=== PATIENT | female | born 1975 | race Hispanic/Latino ===

== ENCOUNTER 2017-11-24 14:13 | Emergency (ER) | payer OTHER ==
[2017-11-24 15:32] LABS: Absolute Lymphocytes (CBC) 2.1 K/uL (0.7-4.9); Absolute Monocytes 0.5 K/uL (0.1-1.3); Absolute Neutrophil 3.7 K/uL (1.8-8.0); Basophils % 0.4 % (0-1.3); Eosinophils % 0.3 % (0-4.4); Lymphocytes % 32.8 % (15.3-44.8); MCH 32.1 pg (27.0-35.0); MPV 8.2 fL (7.6-11.3); Monocytes % 7.9 % (3.3-12.3); RBC Red Blood Cell Count 4.52 M/uL (3.86-4.86)
[2017-11-24 15:43] LABS: Protime INR 0.91
[2017-11-24 15:58] LABS: Bicarbonate 25 mEq/L (21-31); Glucose Level 100 mg/dL (65-120); Potassium 3.7 mEq/L (3.6-5.0); Sodium Level 137 mEq/L (135-145)
--- NOTE | 2017-11-24 16:00 | RAD REPORT ---
EXAM DESCRIPTION: RAD - Chest Single View - 11/24/2017 3:51 pm CLINICAL HISTORY: Difficulty breathing COMPARISON: None. FINDINGS: Portable technique limits examination quality. The lungs are grossly clear. The heart is normal in size. No displaced fractures. IMPRESSION: No acute intrathoracic process suspected.
[2017-11-24 16:05] LABS: ALT/SGPT 18 IU/L (10-60); AST/SGOT 25 IU/L (10-42); Albumin 4.1 g/dL (3.2-5.5); Alkaline Phosphatase 103 IU/L (42-121); BUN Blood Urea Nitrogen 10 mg/dL (6-20); Bilirubin Direct 0.1 mg/dL (0-0.2); Bilirubin Total 0.5 mg/dL (0.3-1.2); Creatine Phosphokinase 95 IU/L (22-269); Magnesium 2.1 mg/dL (1.8-2.5); Protein, Total 7.3 g/dL (6.0-8.3)
[2017-11-24 16:15] LABS: CKMB Creatine Kinase MB 1.4 ng/ml (0.3-4.0)
--- NOTE | 2017-11-24 16:51 | ER ---
Nurse's Notes [facility] Name: Kary Dorado Age: 42 yrs Sex: Female : 1975 Arrival Date: 11/24/2017 Time: 14:15 Bed 16 Private MD: Diagnosis: Chest pain, unspecified Presentation: 11/24 14:25 Presenting complaint: Patient states: coworker states "we were working and she was tw2 having a hard time breathing and it hurt in my back, with a lot of pressure in her chest and she has been coughing a lot for 6 weeks". Transition of care: patient was not received from another setting of care. Onset of symptoms was November 24, 2017. Initial Sepsis Screen: Does the patient meet any 2 criteria? No. Patient's initial sepsis screen is negative. Does the patient have a suspected source of infection? No. Patient's initial sepsis screen is negative. Care prior to arrival: None. 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 - Social history:: Smoking status: Patient/guardian denies using tobacco. Screenin:15 Abuse screen: Denies threats or abuse. Denies injuries from another. Nutritional jl7 screening: No deficits noted. Tuberculosis screening: No symptoms or risk factors identified. Fall Risk IV access (20 points). Total Alvarado Fall Scale indicates No Risk (0-24 pts). Assessment: 15:15 General: Appears uncomfortable, Behavior is cooperative, appropriate for age, anxious. jl7 Pain: Complains of pain in anterior aspect of left upper chest Pain radiates to left arm and striaght through to the back Pain currently is 10 out of 10 on a pain scale. at worst was 10 out of 10 on a pain scale. Quality of pain is described as sharp, stabbing, Pain began 1 day ago. Is intermittent. Neuro: Level of Consciousness is awake, alert, obeys commands, Oriented to person, place, time, situation. Cardiovascular: Heart tones S1 S2 present Patient's skin is warm and dry. Respiratory: Reports shortness of breath cough that is since "Months" Airway is patent Respiratory effort is even, unlabored, Respiratory pattern is regular, symmetrical, Breath sounds are clear bilaterally. GI: No signs and/or symptoms were reported involving the gastrointestinal system. : No signs and/or symptoms were reported regarding the genitourinary system. EENT: No signs and/or symptoms were reported regarding the EENT system. Derm: Skin is pink, warm \\T\\ dry. Musculoskeletal: No signs and/or symptoms reported regarding the musculoskeletal system. 16:20 Reassessment: Patient and/or family updated on plan of care and expected duration. Pain jl7 level reassessed. Patient is alert, oriented x 3, equal unlabored respirations, skin warm/dry/pink. Vital Signs: 14:26 BP 121 / 86; Pulse 80; Resp 17; Temp 98.6(O); Pulse Ox 97% on R/A; Weight 63.5 kg (R); tw2 Height 5 ft. 3 in. (160.02 cm); Pain 6/10; 14:42 BP 123 / 81; Pulse 72; Resp 16 S; Pulse Ox 100% on R/A; jl7 15:30 BP 118 / 84; Pulse 68; Resp 16; Pulse Ox 100% on R/A; jl7 16:19 BP 120 / 84; Pulse 75; Resp 16 S; Pulse Ox 98% on R/A; jl7 17:00 BP 114 / 82; Pulse 74; Resp 16 S; Pulse Ox 98% on R/A; dm5 14:26 Body Mass Index 24.80 (63.50 kg, 160.02 cm) tw2 ED Course: 14:15 Patient arrived in ED. tw3 14:26 Triage completed. tw2 14:26 Arm band placed on. tw2 14:43 Ede Whyte NP is PHCP. pm1 14:43 Femi Dorado MD is Attending Physician. pm1 14:56 Yael Joyce RN is Primary Nurse. jl7 15:15 Initial lab(s) drawn, by pa, sent to lab. Inserted saline lock: 20 gauge in left jl7 antecubital area, using aseptic technique. Blood collected. 15:17 Patient has correct armband on for positive identification. Placed in gown. Bed in low mh5 position. Side rails up X2. Adult w/ patient. shelter monitor on. Pulse ox on. NIBP on. 15:17 EKG done, by ED staff, reviewed by Ede Whyte NP. mh5 15:32 EKG done, by auto technician mechanic. reviewed by Ede Whyte NP. at1 15:50 X-ray completed. Portable x-ray completed in exam room. Patient tolerated procedure bb2 well. 15:51 XRAY Chest (1 view) In Process Unspecified. EDMS 17:04 IV discontinued, intact, bleeding controlled, No redness/swelling at site. Pressure dm5 dressing applied. 17:10 No provider procedures requiring assistance completed. dm5 18:18 Primary Nurse role handed off by Yael Joyce RN ag Administered Medications: No medications were administered Outcome: 16:51 Discharge ordered by MD. pm1 17:10 Discharged to home ambulatory. dm5 17:10 Condition: stable 17:10 Discharge instructions given to patient, family, Instructed on discharge instructions, follow up and referral plans. medication usage, Demonstrated understanding of instructions, follow-up care, medications, Prescriptions given X 2. 17:11 Patient left the ED. dm5 18:21 Patient left the ED. ag Signatures: Dispatcher [employer] EDNV Farhana Kuhn, RN RN robert5 Franchesca daley, interchange agent EKG Tat1 Neil, Ede Boo NP [employer] pm1 Jacquelin Jett RN RN tw2 Betsy Soni Yael Riley RN RN jl7 Senia Dunn tw3 Vijaya Duarte bb2
--- NOTE | 2017-11-24 16:52 | EDPHYS ---
Physician Documentation [facility] Name: Kary Dorado Age: 42 yrs Sex: Female : 1975 Arrival Date: 11/24/2017 Time: 14:15 Bed 16 Private MD: ED Physician Femi Dorado HPI: 11/24 17:00 This 42 yrs old Female presents to ER via Ambulatory with complaints of Side pm1 Pain, Chest Pain > 30 y/o. 17:00 The patient or guardian reports chest pain that is located primarily in the mid-sternal pm1 area. Onset: 2 day(s) ago. The pain radiates to the left shoulder. Associated signs and symptoms: Pertinent positives: cough, Pertinent negatives: abdominal pain, dizziness, headache, nausea, shortness of breath, vomiting. The chest pain is described as sharp. Duration: The patient or guardian reports multiple episodes, that have now resolved, the episodes last approximately 5 second(s). Modifying factors: The symptoms are alleviated by nothing. the symptoms are aggravated by cough, deep breath, emotionally stressful situations, palpation of area. Severity of pain: in the emergency department the pain has resolved. The patient has not experienced similar symptoms in the past. 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 - Social history:: Smoking status: Patient/guardian denies using tobacco. ROS: 17:00 Constitutional: Negative for fever, chills, and weight loss, Eyes: Negative for injury, pm1 pain, redness, and discharge, ENT: Negative for injury, pain, and discharge, Neck: Negative for injury, pain, and swelling. 17:00 Respiratory: Negative for shortness of breath, cough, wheezing, and pleuritic chest pain, Abdomen/GI: Negative for abdominal pain, nausea, vomiting, diarrhea, and constipation, Back: Negative for injury and pain, : Negative for injury, bleeding, discharge, and swelling, MS/Extremity: Negative for injury and deformity, Skin: Negative for injury, rash, and discoloration, Neuro: Negative for headache, weakness, numbness, tingling, and seizure. 17:00 Cardiovascular: Positive for chest pain, Negative for edema. Exam: 17:00 Constitutional: This is a well developed, well nourished patient who is awake, alert, pm1 and in no acute distress. Head/Face: Normocephalic, atraumatic. Eyes: Pupils equal round and reactive to light, extra-ocular motions intact. Lids and lashes normal. Conjunctiva and sclera are non-icteric and not injected. Cornea within normal limits. Periorbital areas with no swelling, redness, or edema. ENT: Nares patent. No nasal discharge, no septal abnormalities noted. Tympanic membranes are normal and external auditory canals are clear. Oropharynx with no redness, swelling, or masses, exudates, or evidence of obstruction, uvula midline. Mucous membranes moist. Neck: Trachea midline, no thyromegaly or masses palpated, and no cervical lymphadenopathy. Supple, full range of motion without nuchal rigidity, or vertebral point tenderness. No Meningismus. 17:00 Cardiovascular: Regular rate and rhythm with a normal S1 and S2. No gallops, murmurs, or rubs. Normal PMI, no JVD. No pulse deficits. Respiratory: Lungs have equal breath sounds bilaterally, clear to auscultation and percussion. No rales, rhonchi or wheezes noted. No increased work of breathing, no retractions or nasal flaring. 17:00 Abdomen/GI: Soft, non-tender, with normal bowel sounds. No distension or tympany. No guarding or rebound. No evidence of tenderness throughout. Back: No spinal tenderness. No costovertebral tenderness. Full range of motion. Skin: Warm, dry with normal turgor. Normal color with no rashes, no lesions, and no evidence of cellulitis. MS/ Extremity: Pulses equal, no cyanosis. Neurovascular intact. Full, normal range of motion. 17:00 Chest/axilla: Inspection: normal, Palpation: crepitus, is not appreciated, tenderness, of the mid-sternal area, that totally reproduces the patient's complaints. 17:00 Neuro: Orientation: is normal, Mentation: is normal, Motor: is normal, moves all fours. Vital Signs: 14:26 BP 121 / 86; Pulse 80; Resp 17; Temp 98.6(O); Pulse Ox 97% on R/A; Weight 63.5 kg (R); tw2 Height 5 ft. 3 in. (160.02 cm); Pain 6/10; 14:42 BP 123 / 81; Pulse 72; Resp 16 S; Pulse Ox 100% on R/A; jl7 15:30 BP 118 / 84; Pulse 68; Resp 16; Pulse Ox 100% on R/A; jl7 16:19 BP 120 / 84; Pulse 75; Resp 16 S; Pulse Ox 98% on R/A; jl7 17:00 BP 114 / 82; Pulse 74; Resp 16 S; Pulse Ox 98% on R/A; dm5 14:26 Body Mass Index 24.80 (63.50 kg, 160.02 cm) tw2 MDM: 15:14 Patient medically screened. pm1 16:49 Data reviewed: vital signs. Data interpreted: Pulse oximetry: on room air is 98 %. pm1 Interpretation: normal. Counseling: I had a detailed discussion with the patient and/or guardian regarding: the historical points, exam findings, and any diagnostic results supporting the discharge/admit diagnosis, lab results, radiology results, the need for outpatient follow up, to return to the emergency department if symptoms worsen or persist or if there are any questions or concerns that arise at home. 11/24 15:14 Order name: Basic Metabolic Panel; Complete Time: :11/24 15:14 Order name: BNP; Complete Time: 16:11/24 15:14 Order name: CBC with Diff; Complete Time: :11/24 15:14 Order name: Ckmb; Complete Time: :11/24 15:14 Order name: CPK; Complete Time: :11/24 15:14 Order name: LFT's; Complete Time: :11/24 15:14 Order name: Magnesium; Complete Time: :11/24 15:14 Order name: PT-INR; Complete Time: 16:11/24 15:14 Order name: Ptt, Activated; Complete Time: 16:11/24 15:14 Order name: Troponin (emerg Dept Use Only); Complete Time: 16:11/24 15:14 Order name: XRAY Chest (1 view); Complete Time: 16:09 11/24 15:20 Order name: D-Dimer; Complete Time: 16:09 pm1 11/24 18:21 Order name: Urine Dipstick--Ancillary (enter results) ag 11/24 18:21 Order name: Urine --Ancillary (enter results) ag 11/24 14:57 Order name: EKG; Complete Time: 14:57 11/24 14:57 Order name: EKG - Nurse/Tech; Complete Time: 16:17 11/24 15:14 Order name: Cardiac monitoring; Complete Time: 16:18 11/24 15:14 Order name: IV Saline Lock; Complete Time: 16:17 11/24 15:14 Order name: Labs collected and sent; Complete Time: 16:17 11/24 15:14 Order name: O2 Per Protocol; Complete Time: 16:17 11/24 15:14 Order name: O2 Sat Monitoring; Complete Time: 16:17 Administered Medications: No medications were administered Disposition: 17:16 Co-signature as Attending Physician, Femi Dorado MD. rn Disposition: 11/24/17 16:51 Discharged to Home. Impression: Chest pain, unspecified. - Condition is Stable. - Discharge Instructions: Nonspecific Chest Pain. - Prescriptions for Naprosyn 500 mg Oral Tablet - take 1 tablet by ORAL route 2 times per day take with food; 30 tablet. Cyclobenzaprine 10 mg Oral Tablet - take 1 tablet by ORAL route every 8 hours As needed; 30 tablet. - Medication Reconciliation Form, Thank You Letter form. - Follow up: Emergency Department; When: As needed; Reason: Worsening of condition. Follow up: Private Physician; When: 2 - 3 days; Reason: Recheck today's complaints, Continuance of care, Re-evaluation by your physician. - Problem is new. - Symptoms have improved. Signatures: Dispatcher [employer] Farhana Palmer, RN RN dm5 Femi Dorado MD MD rn Gallardo, Deyanira ag Ede Whyte, AGRICULTURE WORKER AGRICULTURE WORKER pm1 Jacquelin Jett RN RN tw2 Yael Joyce RN RN jl7
[2017-11-24 18:32] LABS: Urine Blood TRACE (NEG); Urine Glucose NEGATIVE (NEG); Urine Protein NEGATIVE (NEG); Urine pH 8.5 (5.0-7.0)
--- NOTE | 2017-11-25 06:56 | EKG ---
Test Date: 2017-11-24 Test Time: 15:11:51 Jewelry Drill Operator: ROOPA MEASUREMENT RESULTS: Intervals: Rate: 72 CT: 140 QRSD: 82 QT: 388 QTc: 424 [place]: P: 41 CT: 140 QRS: 39 T: 35 INTERPRETIVE STATEMENTS: Normal sinus rhythm Normal ECG No previous ECG available for comparison Electronically Signed On 11-25-17 06:55:29 CDT by Benson Villalobos
== END 2017-11-24 18:21 | disposition home or self-care (01) ==
LOC: ER 14:13
DX: R07.9 Chest pain, unspecified (principal); I10 Essential (primary) hypertension; Z88.8 Allergy status to other drugs, medicaments and biological substances
CPT/HCPCS: 36415; 71045; 80048; 80076; 81003; 81025; 82550; 82553; 83735; 83880; 84484; 85025; 85379; 85610; 85730; 93005; 99285

== ENCOUNTER 2022-04-19 08:21 | Emergency (ER) | payer OTHER, SELFPAY ==
--- OUTSIDE RECORDS SUMMARY | 2022-04-19 08:24 | XMS REPORT | Continuity of Care Document ---
:1975 Author Organization [facility] t Address [address] Reyes [address] [place] [id number] Care Team Providers Name Role Phone Yanelis Delia Attending Clinician Unavailable Problems Condition Condition Condition Status Onset Resolution Last Treating Co mments Source Name Details Category Date Date Treatment Clinician Date Allergic Allergic Problem Active Commo n rhinitis rhinitis [facility] Allergies, Adverse Reactions, Alerts Allergy Allergy Status Severity Reaction(s) Onset Inactive Treating Comm ents Source Name Type Date Date Clinician Keflex Adverse Active Info Not Common Reaction Available [facility] Medications Ordered Filled Start Stop Current Ordering Indication Dosage Frequency Signature Comments Components Source Medication Medication Date Date Medication? Clinician (SIG) Name Name Triamcinolo Triamcinolo Yes Delia 1 Common ne ne 4-03 [place] [facility] Acetonide Acetonide 00:00: n to - C HI 00 affected [facility] Isotretinoi Isotretinoi Yes Delia as Common n n [place] directed [facility] Singulair Singulair Yes Delia 1 tablet Common [place] [facility] Procedures This patient has no known procedures. Encounters Start End Encounter Admission Attending Care Care Encounter Source Date/Time Date/Time Type Type Clinicians Facility Department ID 2021-08-28 Outpatient [place] [facility] [id number] Common 11:29:13 Delia [address] [facility] 2021-08-28 Outpatient Yanelis [facility] [id number] Common 11:20:14 Delia [address] [facility] 2021-08-28 Outpatient Yanelis [facility] [id number] Common 10:57:54 Delia [address]14[address] [facility] 2021-08-28 Outpatient Yanelis [facility] [id number] Common 10:57:35 Delia [address] [facility] 2020-02-06 2020-02-06 [id number] Common 10:00:00 10:00:00 t [facility] [address] [facility] 2020-02-01 2020-02-01 [facility] [id number] Common 13:20:00 13:20:[address] [facility] 2020-02-01 2020-02-01 [facility] [id number] Common 08:09:00 08:09:[address] [facility] 2019-12-02 2019-12-02 [facility] [id number] Common 14:12:00 14:12:00 t [facility] [address] [facility] 2019-12-02 2019-12-02 [facility] [id number] Common 13:30:00 13:30:[address] [facility] 2019-12-01 2019-12-01 [facility] [place] [id number] Common 13:24:00 13:24:[address] [facility] 2019-11-30 2019-11-30 [facility] [id number] Common 14:28:00 14:28:[address] [facility] 2019-11-04 2019-11-04 [facility] [place] [id number] Common 08:20:00 08:20:[address] [facility] 2019-11-03 2019-11-03 [facility] [place] [id number] Common 14:25:00 14:25:[address] [facility] 2019-08-04 2019-08-04 [facility] [place] [id number] Common 16:00:00 16:00:00 t [facility] [address] Sp[address] [facility] 2018-02-16 2018-02-16 Outpatient Kapil Downs [id number] Common 11:00:00 11:00:00 [facility] it [facility] Results This patient has no known results.
[2022-04-19] MEDS ORDERED: NA CHLORIDE 0.9% 1,000 ML ONE (08:42)
[2022-04-19] MEDS ORDERED: MECLIZINE HCL 12.5 MG TAB ONE (08:42)
[2022-04-19 08:50] LABS: Absolute Lymphocytes (CBC) 2.2 K/uL (0.7-4.9); Hematocrit 37.7 % (36.0-45.0); Lymphocytes % 32.9 % (15.3-44.8); MCV 89.7 fL (80-100); MPV 7.2 fL (7.6-11.3); RBC Red Blood Cell Count 4.21 M/uL (3.86-4.86)
[2022-04-19 09:03] LABS: Troponin High Sensitivity 3.9 pg/mL (<58.9)
[2022-04-19] MEDS ORDERED: DIAZEPAM 10 MG/2 ML INJ SYRINGE ONE (09:24)
--- NOTE | 2022-04-19 09:56 | RAD REPORT ---
EXAM DESCRIPTION: CT - Head Brain Wo Cont - 04/19/2022 9:39 am CLINICAL HISTORY: Vertigo COMPARISON: None TECHNIQUE: Computed axial tomography of the head was obtained. IV contrast was not requested. All CT scans are performed using dose optimization technique as appropriate and may include automated exposure control or mA/KV adjustment according to patient size. FINDINGS: An intracranial bleed is not seen . The ventricles are normal in caliber. No extra-axial fluid collection is noted. No significant hypodensity within the brain Fluid within the sinuses/ mastoids is not seen. IMPRESSION: No acute intracranial abnormality is seen. If patient's symptoms persist MRI of the bra in would be recommended.
--- NOTE | 2022-04-19 10:04 | RAD REPORT ---
EXAM DESCRIPTION: Emi Angio04/19/2022 9:41 am CLINICAL HISTORY: Vertigo COMPARISON: None TECHNIQUE: 50 cc Isovue 370 was administered intravenously. 3D MIP reconstruction performed All CT scans are performed using dose optimization technique as appropriate and may include automated exposure control or mA/KV adjustment according to patient size. FINDINGS: The common carotid, internal carotid and external carotid arteries bilaterally are normal caliber. The vertebral arteries are codominant. No dissection seen. No aneurysm noted IMPRESSION: No significant abnormality is displayed NASCET criteria used. Mild 0-49% stenosis Moderate 50-69% stenosis Severe 70-99% stenosis
--- NOTE | 2022-04-19 10:08 | RAD REPORT ---
EXAM DESCRIPTION: CTHead angio04/19/2022 9:40 am CLINICAL HISTORY: Vertigo COMPARISON: None TECHNIQUE: CT angiogram of the head was obtained. 3D MIPS reconstruction performed. All CT scans are performed using dose optimization technique as appropriate and may include automated exposure control or mA/KV adjustment according to patient size. FINDINGS: The basilar, internal carotid, anterior cerebral, middle cerebral and posterior cerebral a rteries are normal caliber. origin right posterior cerebral artery An aneurysm is not seen. A significant stenosis is not noted. IMPRESSION: No significant abnormality is displayed
[2022-04-19] MEDS ORDERED: KETOROLAC 30 MG/ML INJ ONE (10:49)
[2022-04-19] MEDS ORDERED: dexAMETHasone 10 MG/ML VIAL ONE (10:49)
--- NOTE | 2022-04-19 10:58 | EDPHYS ---
Physician Documentation [facility] Name: Kary Dorado Age: 46 yrs Sex: Female : 1975 Arrival Date: 04/19/2022 Time: 08:23 Bed 14 Private MD: ED Physician Nancy Crane HPI: 04/19 08:24 This 46 yrs old Female presents to ER via EMS with complaints of Vertigo, jmm Headache. 08:24 The patient presents with dizziness. Onset: The symptoms/episode began/occurred jmm acutely, this morning, at 06:45. This is a 46-year-old female with history of hypertension the presents emerged department with complaints of acute onset dizziness which began when she awoke around 645 this morning. Symptoms are worsened when she moves her head, change in position. Also complains some nausea but denies any vomiting. Patient states that approximately 2 weeks ago she was treated for a strep infection. . Historical: - Allergies: 08:25 nalidixic acid; bp 08:25 Keflex; bp - Home Meds: 08:25 CONTROL [Active]; bp - PMHx: 08:25 Hypertension; bp - Immunization history:: Adult Immunizations unknown. - Social history:: Smoking status: Patient denies any tobacco usage or history of. ROS: 08:24 Constitutional: Negative for fever, chills, and weight loss, Cardiovascular: Negative jmm for chest pain, palpitations, and edema, Respiratory: Negative for shortness of breath, cough, wheezing, and pleuritic chest pain. 08:24 Neuro: Positive for dizziness, headache. 08:24 All other systems are negative. Exam: 08:24 Constitutional: This is a well developed, well nourished patient who is awake, alert, jmm and in no acute distress. Head/Face: atraumatic. 08:24 ENT: Moist Mucus Membranes Neck: Trachea midline, Supple Chest/axilla: Normal chest wall appearance and motion. Cardiovascular: Regular rate and rhythm. No edema appreciated Respiratory: Normal respirations, no respiratory distress appreciated Abdomen/GI: Non distended Back: Normal ROM Skin: General appearance color normal 08:24 Eyes: Nystagmus: nystagmus with fast component noted, bilaterally. 08:24 Musculoskeletal/extremity: ROM: intact in all extremities. 08:24 Skin: Appearance: Color: normal in color. 08:24 Neuro: Orientation: is normal, Mentation: is normal, Memory: is normal. 08:24 Neuro: Cerebellar function: normal finger to nose testing. 08:24 Psych: Behavior/mood is pleasant, cooperative. Vital Signs: 08:24 BP 136 / 88; Pulse 79; Resp 16; Temp 97.5; Pulse Ox 99% ; bp 08:29 BP 131 / 85; Pulse 79; Resp 16; Pulse Ox 100% ; bp 10:14 BP 116 / 81; Pulse 72; Resp 12; Pulse Ox 100% ; bp MDM: 08:24 Patient medically screened. [facility] 10:57 Data reviewed: vital signs, nurses notes. Counseling: I had a detailed discussion with duke the patient and/or guardian regarding: the historical points, exam findings, and any diagnostic results supporting the discharge/admit diagnosis, lab results, radiology results, the need for outpatient follow up, to return to the emergency department if symptoms worsen or persist or if there are any questions or concerns that arise at home. ED course: Patient's symptoms have improved. Patient is able to ambulate without difficulty. Advised follow with ENT and otherwise given strict return precautions. Patient understood and agrees plan of care.. 04/19 08:24 Order name: Basic Metabolic Panel; Complete Time: 09:09 [facility] 04/19 08:24 Order name: CBC with Diff; Complete Time: 09: [facility] 04/19 08:24 Order name: Troponin HS; Complete Time: 09:09 [facility] 04/19 08:25 Order name: CT Head Brain wo Cont; Complete Time: 09:58 [facility] 04/19 08:25 Order name: CT Head Angio; Complete Time: 10:09 [facility] 04/19 08:25 Order name: CT Neck Angio; Complete Time: 10:05 [facility] 04/19 08:24 Order name: EKG; Complete Time: 08:25 [facility] 04/19 08:24 Order name: Cardiac monitoring; Complete Time: 08:43 [facility] 04/19 08:24 Order name: EKG - Nurse/Tech; Complete Time: 08:43 [facility] 04/19 08:24 Order name: IV Saline Lock; Complete Time: 08:27 [facility] 04/19 08:24 Order name: Labs collected and sent; Complete Time: 08:43 [facility] 04/19 08:24 Order name: O2 Per Protocol; Complete Time: 08:27 [facility] 04/19 08:24 Order name: O2 Sat Monitoring; Complete Time: [facility] Administered Medications: 08:40 Drug: Meclizine 25 mg Route: PO; bp 09:17 Follow up: Response: No adverse reaction bp 08:40 Drug: NS 0.9% 1000 ml Route: IV; Rate: 1 bolus; Site: right antecubital; bp 09:17 Drug: Valium (diazepam) 2 mg Route: IVP; Site: right antecubital; bp 10:14 Follow up: Response: No adverse reaction bp 10:30 Drug: Decadron - Dexamethasone 10 mg Route: IVP; Site: right antecubital; bp 10:30 Drug: Ketorolac 30 mg Route: IVP; Site: right antecubital; bp Disposition: 16:12 STAFF ATTESTATION: The patient's history, exam findings, diagnostics and a summary of sd2 any interventions or procedures was reviewed in detail with the ED MADELYN. I confirm the diagnosis as documented by the MADELYN and I agree with the care plan articulated in the disposition section with regards to our discussion of the patient's case. Nancy Crane MD. Disposition Summary: 04/19/22 10:58 Discharge Ordered Location: Home [facility] Condition: Stable [facility] Diagnosis - Other peripheral vertigo [facility] Followup: [facility] - With: Nancy Moralez MD - When: 2 - 3 days - Reason: Recheck today's complaints, Continuance of care, Re-evaluation by your physician Discharge Instructions: - Discharge Summary Sheet [facility] - Labyrinthitis [facility] Forms: - Medication Reconciliation Form [facility] - Thank You Letter [facility] - Antibiotic Education [facility] - Prescription Opioid Use [facility] Prescriptions: - Prednisone 20 mg Oral Tablet - take 3 tablets by ORAL route once daily for 5 days; 15 tablet; Refills: 0, [facility] Product Selection Permitted - Valium 2 mg Oral Tablet - take 1 tablet by ORAL route every 8 hours As needed; 20 tablet; Refills: 0, [facility] Product Selection Permitted - ondansetron 4 mg Oral tablet,disintegrating - take 1 tablet by ORAL route every 4-6 hours As needed; 20 tablet; Refills: 0, [facility] Product Selection Permitted Signatures: Dispatcher [employer] Jhon Conklin PA PA jmm Peltier, Brian, RN RN bp Nancy Crane MD MD sd2
--- NOTE | 2022-04-19 10:58 | ER ---
Nurse's Notes [facility] Name: Kary Dorado Age: 46 yrs Sex: Female : 1975 Arrival Date: 04/19/2022 Time: 08:23 Bed 14 Private MD: Diagnosis: Other peripheral vertigo Presentation: 04/19 08:24 Chief complaint: EMS states: VERTIGO AND HEADACHE SINCE 0645. Coronavirus screen: At bp this time, the client does not indicate any symptoms associated with coronavirus-19. Ebola Screen: No symptoms or risks identified at this time. Initial Sepsis Screen: Does the patient meet any 2 criteria? No. Patient's initial sepsis screen is negative. Does the patient have a suspected source of infection? No. Patient's initial sepsis screen is negative. Risk Assessment: Do you want to hurt yourself or someone else? Patient reports no desire to harm self or others. Onset of symptoms was April 19, 2022 at 06:45. Care prior to arrival: Medication(s) given: zofran 4 mg, IV TYLENOL IV initiated. 20 GA, in the right antecubital area, Glucose check: 100. 08:24 Method Of Arrival: EMS: [facility] bp 08:24 Acuity: JENISE 3 bp Triage Assessment: 08:25 Headache History: The patient has had previous headaches and this one is different than previous episodes. General: Appears distressed, uncomfortable, Behavior is cooperative, appropriate for age, anxious. Pain: Complains of pain in scalp Pain currently is 8 out of 10 on a pain scale. Pain began 2 hours ago. Also complains of VERTIGO. EENT: No deficits noted. Neuro: Reports dizziness. Cardiovascular: No deficits noted. Respiratory: No deficits noted. GI: No signs and/or symptoms were reported involving the gastrointestinal system. : No signs and/or symptoms were reported regarding the genitourinary system. Derm: No deficits noted. Musculoskeletal: No deficits noted. Historical: - Allergies: 08:25 nalidixic acid; bp 08:25 Keflex; bp - Home Meds: 08:25 CONTROL [Active]; bp - PMHx: 08:25 Hypertension; bp - Immunization history:: Adult Immunizations unknown. - Social history:: Smoking status: Patient denies any tobacco usage or history of. Screenin:28 Abuse screen: Denies threats or abuse. Denies injuries from another. Nutritional bp screening: No deficits noted. Tuberculosis screening: No symptoms or risk factors identified. Fall Risk None identified. Assessment: 08:28 General: SEE TRIAGE NOTE. bp 10:00 Reassessment: PT RETURNED FROM CT. bp Vital Signs: 08:24 BP 136 / 88; Pulse 79; Resp 16; Temp 97.5; Pulse Ox 99% ; bp 08:29 BP 131 / 85; Pulse 79; Resp 16; Pulse Ox 100% ; bp 10:14 BP 116 / 81; Pulse 72; Resp 12; Pulse Ox 100% ; bp ED Course: 08:23 Patient arrived in ED. bp 08:23 Jhon Hebert PA is PHCP. [facility] 08:24 Nancy Crane MD is Attending Physician. [facility] 08:25 Triage completed. bp 08:28 Arm band placed on. bp 08:28 Patient has correct armband on for positive identification. Bed in low position. Call bp light in reach. Side rails up X2. 08:29 Maintain EMS IV. Dressing intact. Good blood return noted. Site clean \T\ dry. Gauge \T\ bp site: 20 GAUGE R AC. 08:43 Felix Salmon, AJITH is Primary Nurse. bp 09:41 CT Head Brain wo Cont In Process Unspecified. EDMS 09:42 CT Head Angio In Process Unspecified. EDMS 09:43 CT Neck Angio In Process Unspecified. EDMS 10:57 Nancy Moralez MD is Referral Physician. [facility] Administered Medications: 08:40 Drug: Meclizine 25 mg Route: PO; bp 09:17 Follow up: Response: No adverse reaction bp 08:40 Drug: NS 0.9% 1000 ml Route: IV; Rate: 1 bolus; Site: right antecubital; bp 09:17 Drug: Valium (diazepam) 2 mg Route: IVP; Site: right antecubital; bp 10:14 Follow up: Response: No adverse reaction bp 10:30 Drug: Decadron - Dexamethasone 10 mg Route: IVP; Site: right antecubital; bp 10:30 Drug: Ketorolac 30 mg Route: IVP; Site: right antecubital; bp Medication: 08:28 VIS not applicable for this client. bp Outcome: 10:58 Discharge ordered by . duke 11:55 Patient left the ED. daphney Signatures: Dispatcher [employer] EDMS Jhon Hebert PA PA jmm Peltier, Brian, AJITH RN Bhavya Valdez
[2022-04-20 20:58] VITALS: TEMP 97.5
[2022-04-20 21:04] VITALS: O2SAT 100
[2022-04-20 21:06] VITALS: BP 116/81
== END 2022-04-19 11:55 | disposition home or self-care (01) ==
LOC: ER 08:21
DX: H81.399 Other peripheral vertigo, unspecified ear (principal); I10 Essential (primary) hypertension
CPT/HCPCS: 36415; 70450; 70496; 70498; 80048; 84484; 85025; 93005; 96374; 96375; 99283; J1100; J3360; J7030; J8597; Q9967

== ENCOUNTER 2024-01-20 14:58 | Emergency (ER) | payer BC ==
--- NOTE | 2024-01-20 17:06 | ER ---
Nurse's Notes [facility] Name: Kary Dorado Age: 48 yrs Sex: Female : 1975 Arrival Date: 01/20/2024 Time: 14:58 Bed 8 Private MD: Diagnosis: Pain in leg, unspecified-swelling Presentation: 01/19 15:02 Chief complaint: Patient states: had tummy tuck revision in [place] 6 weeks ago and ko1 about 3 days ago back of left thigh began hurting, swollen, red. Has been taking levaquin and ibuprofen. Coronavirus screen: At this time, the client does not indicate any symptoms associated with coronavirus-19. Ebola Screen: No symptoms or risks identified at this time. Initial Sepsis Screen: Does the patient meet any 2 criteria? No. Patient's initial sepsis screen is negative. Does the patient have a suspected source of infection? No. Patient's initial sepsis screen is negative. Risk Assessment: Do you want to hurt yourself or someone else? Patient reports no desire to harm self or others. Onset of symptoms was January 17, 2024. 15:02 Method Of Arrival: Ambulatory ko1 15:02 Acuity: JENISE 3 ko1 Triage Assessment: 15:08 General: Appears in no apparent distress. Behavior is calm, cooperative, appropriate ko1 for age. Pain: Complains of pain in left hamstring. 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 - Infectious Disease History:: Denies. - Social history:: Smoking status: Patient denies any tobacco usage or history of. Screenin:11 [facility] ED Fall Risk Assessment (Adult) History of falling in the last 3 months, rs5 including since admission No falls in past 3 months (0 pts) Confusion or Disorientation No (0 pts) Intoxicated or Sedated No (0 pts) Impaired Gait No (0 pts) Mobility Assist Device Used No (0 pt) Altered Elimination No (0 pt) Score/Fall Risk Level 0 - 2 = Low Risk Oriented to surroundings, Maintained a safe environment. Abuse screen: Denies threats or abuse. Nutritional screening: No deficits noted. Tuberculosis screening: No symptoms or risk factors identified. Assessment: 15:11 General: Appears in no apparent distress. uncomfortable, Behavior is calm, cooperative. rs5 15:11 Pain: Complains of pain in back of left thigh Pain currently is 3 out of 10 on a pain rs5 scale. Quality of pain is described as aching, Is continuous. Neuro: Level of Consciousness is awake, alert, obeys commands, Oriented to person, place, time, situation. Cardiovascular: Patient's skin is warm and dry. Rhythm is regular. Respiratory: Airway is patent Respiratory effort is even, unlabored, Respiratory pattern is regular, symmetrical. GI: Abdomen is round non-distended, Abd is soft and non tender X 4 quads. : No signs and/or symptoms were reported regarding the genitourinary system. EENT: No signs and/or symptoms were reported regarding the EENT system. Derm: Skin is intact, Skin is pink, warm \T\ dry. Musculoskeletal: Range of motion: intact in all extremities, Reports swelling to back of left thigh. 15:56 Reassessment: Patient and/or family updated on plan of care and expected duration. Pain rs5 level reassessed. Patient is alert, oriented x 3, equal unlabored respirations, skin warm/dry/pink. 16:10 Reassessment: No changes from previously documented assessment. rs5 17:17 Reassessment: Patient appears in no apparent distress at this time. Patient is alert, nj1 oriented x 3, equal unlabored respirations, skin warm/dry/pink. Vital Signs: 15:02 BP 118 / 84; Pulse 69; Resp 16; Temp 98.1; Pulse Ox 100% on R/A; ko1 17:17 BP 120 / 95; Pulse 72; Resp 16; Pulse Ox 100% on R/A; nj1 ED Course: 15:01 Patient arrived in ED. ra3 15:06 Davonte Davis MD is Attending Physician. kevin 15:08 Triage completed. ko1 15:08 Arm band placed on right wrist. Patient placed in an exam room, on a stretcher, on ko1 secured entrance monitor, on pulse oximetry, Patient notified of wait time. 15:34 Yashira Blackburn RN is Primary Nurse. ld1 15:34 Juan Flores, RN is Primary Nurse. rs5 16:26 No provider procedures requiring assistance completed. rs5 16:51 US Extremity Venous Unilateral Ltd In Process Unspecified. EDMS 17:18 Patient has correct armband on for positive identification. Call light in reach. nj1 Provided Education on: discharge instructions. 17:18 Patient did not have IV access during this emergency room visit. nj1 Administered Medications: No medications were administered Medication: 16:26 VIS not applicable for this client. rs5 Outcome: 17:05 Discharge ordered by . kevin 17:18 Discharged to home ambulatory, nj 17:18 Condition: stable 17:18 Discharge instructions given to patient, Instructed on discharge instructions, follow up and referral plans. medication usage, Demonstrated understanding of instructions, follow-up care, medications, Prescriptions given X 1, 17:18 Patient left the ED. nj1 Signatures: Dispatcher [employer] EDFL Davonte Davis MD MD cha Sims, Lauren, RN RN ld1 Dipika Root, RN RN ko1 Juan Flores, RN RN rs5 Angie Valadez RN RN nj1 Ariella Valdez ra3
--- NOTE | 2024-01-20 17:06 | EDPHYS ---
Physician Documentation [facility] Name: Kary Dorado Age: 48 yrs Sex: Female : 1975 Arrival Date: 01/20/2024 Time: 14:58 Bed 8 Private MD: ED Physician Davonte Davis HPI: 01/19 15:54 This 48 yrs old Female presents to ER via Ambulatory with complaints of Leg kevin Swelling - painful/redness. 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 - Infectious Disease History:: Denies. - Social history:: Smoking status: Patient denies any tobacco usage or history of. ROS: 15:54 Constitutional: Negative for fever, chills, and weight loss, Eyes: Negative for injury, kevin pain, redness, and discharge, ENT: Negative for injury, pain, and discharge, Neck: Negative for injury, pain, and swelling, Cardiovascular: Negative for chest pain, palpitations, and edema, Respiratory: Negative for shortness of breath, cough, wheezing, and pleuritic chest pain, Abdomen/GI: Negative for abdominal pain, nausea, vomiting, diarrhea, and constipation, Back: Negative for injury and pain, : Negative for injury, bleeding, discharge, and swelling, Skin: Negative for injury, rash, and discoloration, Neuro: Negative for headache, weakness, numbness, tingling, and seizure, Psych: Negative for depression, anxiety, suicide ideation, homicidal ideation, and hallucinations, Allergy/Immunology: Negative for hives, rash, and allergies, Endocrine: Negative for neck swelling, polydipsia, polyuria, polyphagia, and marked weight changes, Hematologic/Lymphatic: Negative for swollen nodes, abnormal bleeding, and unusual bruising, 15:54 MS/extremity: Positive for injury or acute deformity, decreased range of motion, pain, swelling, tenderness, of the lateral aspect of left thigh, left hamstring, medial aspect of left thigh and left quadriceps, Exam: 15:54 Constitutional: This is a well developed, well nourished patient who is awake, alert, kevin and in no acute distress. Head/Face: Normocephalic, atraumatic. Eyes: Pupils equal round and reactive to light, extra-ocular motions intact. Lids and lashes normal. Conjunctiva and sclera are non-icteric and not injected. Cornea within normal limits. Periorbital areas with no swelling, redness, or edema. ENT: Nares patent. No nasal discharge, no septal abnormalities noted. Tympanic membranes are normal and external auditory canals are clear. Oropharynx with no redness, swelling, or masses, exudates, or evidence of obstruction, uvula midline. Mucous membranes moist. Neck: Trachea midline, no thyromegaly or masses palpated, and no cervical lymphadenopathy. Supple, full range of motion without nuchal rigidity, or vertebral point tenderness. No Meningismus. Chest/axilla: Normal chest wall appearance and motion. Nontender with no deformity. No lesions are appreciated. Cardiovascular: Regular rate and rhythm with a normal S1 and S2. No gallops, murmurs, or rubs. Normal PMI, no JVD. No pulse deficits. Respiratory: Lungs have equal breath sounds bilaterally, clear to auscultation and percussion. No rales, rhonchi or wheezes noted. No increased work of breathing, no retractions or nasal flaring. Abdomen/GI: Soft, non-tender, with normal bowel sounds. No distension or tympany. No guarding or rebound. No evidence of tenderness throughout. Back: No spinal tenderness. No costovertebral tenderness. Full range of motion. Skin: Warm, dry with normal turgor. Normal color with no rashes, no lesions, and no evidence of cellulitis. Neuro: Awake and alert, GCS 15, oriented to person, place, time, and situation. Cranial nerves II-XII grossly intact. Motor strength 5/5 in all extremities. Sensory grossly intact. Cerebellar exam normal. Normal gait. 15:54 Musculoskeletal/extremity: Extremities: grossly normal except: noted in the left leg: decreased ROM, pain, Vital Signs: 15:02 BP 118 / 84; Pulse 69; Resp 16; Temp 98.1; Pulse Ox 100% on R/A; ko1 17:17 BP 120 / 95; Pulse 72; Resp 16; Pulse Ox 100% on R/A; nj1 MDM: 15:33 Patient medically screened. [facility] 15:56 Differential diagnosis: contusion, abrasion, tendonitis. Data reviewed: vital signs, [facility] nurses notes, radiologic studies, doppler. Consideration of Admission/Observation Escalation of care including admission/observation considered. I considered the following discharge prescriptions or medication management in the emergency department Medications were administered in the Emergency Department. See MAR. Independent interpretation of the following test(s) in the Emergency Department Radiology Department Ultrasound: My interpretation is left dvt doppler. 01/19 15:53 Order name: US Extremity Venous Unilateral Ltd kevin Administered Medications: No medications were administered Disposition Summary: 01/20/24 17:05 Discharge Ordered Notes: Location: Home [facility] Problem: new [facility] Symptoms: have improved kevin Condition: Stable [facility] Diagnosis - Pain in leg, unspecified - swelling kevin Followup: kevin - With: Private Physician - When: 2 - 3 days - Reason: Recheck today's complaints, Continuance of care, Re-evaluation by your physician Discharge Instructions: - Discharge Summary Sheet kevin - Leg Cramps kevin - Musculoskeletal Pain kevin Forms: - Medication Reconciliation Form kevin - Antibiotic Education kevin - Prescription Opioid Use kevin - Patient Portal Instructions [facility] - Leadership Thank You Letter [facility] Prescriptions: - Ibuprofen 600 mg Oral tablet - take 1 tablet ORAL route every 8 hours As needed take with food; 21 tablet; [facility] Refills: 0, Product Selection Permitted Signatures: Dispatcher [employer] Davonte Raimrez MD MD cha Oliver, Kathy, RN RN ko1
[2024-01-20 17:29] VITALS: BP 120/95; TEMP 98.1; O2SAT 100
--- NOTE | 2024-01-20 17:30 | RAD REPORT ---
EXAM DESCRIPTION: US - Extremity Venous Uni Ltd - 01/20/2024 4:49 pm CLINICAL HISTORY: Pain, swelling COMPARISON: None. TECHNIQUE: Real-time sonographic evaluation of the left lower extremity deep venous system was perfo rmed. FINDINGS: Normal compressibility, flow augmentation, phasic flow and spontaneous flow is identified in the left lower extremity deep venous system. No intraluminal filling defects seen. IMPRESSION: No DVT in the left lower extremity.
== END 2024-01-20 17:18 | disposition home or self-care (01) ==
LOC: ER 14:58
DX: M79.605 Pain in left leg (principal); R22.42 Localized swelling, mass and lump, left lower limb
CPT/HCPCS: 93971

== ENCOUNTER 2025-05-15 07:10 | Day surgery (SDC) | payer MEDICARE ==
[2025-05-12 16:00] LABS: Absolute Lymphocytes (CBC) 2.2 K/uL (0.7-4.9); Hematocrit 39.6 % (36.0-45.0); Hemoglobin 13.5 g/dL (12.0-15.0); MCH 30.8 pg (27.0-35.0); MCHC 34.1 g/dL (32.0-36.0); MCV 90.4 fL (80-100); MPV 7.6 fL (7.6-11.3); Nucleated RBC Absolute Count 0.0 (0-0); Nucleated Red Blood Cells % 0.2 % (0-0); RBC Red Blood Cell Count 4.38 M/uL (3.86-4.86); White Blood Count 5.30 thou/uL (4.3-10.9)
[2025-05-12 16:04] LABS: Anion Gap 9.7 mEq/L (5.0-15.0); BUN Blood Urea Nitrogen 13.0 mg/dL (7-18); Glucose Level 113.0 mg/dL (74-106); Potassium 3.7 mEq/L (3.5-5.1)
[2025-05-15] MEDS ORDERED: EPINEPHRINE 1 MG/ML VIAL ONE (07:42)
[2025-05-15] MEDS: Ringers Lactate 1,000 ML IV ONE (07:50)
[2025-05-15] MEDS ORDERED: LIDOCAINE 1% MPF 5 ML VIAL ONE (08:20)
[2025-05-15] MEDS ORDERED: ONDANSETRON 4 MG/2 ML VIAL ONE (09:32)
[2025-05-15 10:23] VITALS: TEMP 97
[2025-05-15 10:24] VITALS: O2SAT 98
[2025-05-15 10:25] VITALS: BP 121/85
== END 2025-05-15 10:11 | disposition home or self-care (01) ==
LOC: OR 07:10
PROVIDERS: ATTEND Internal Medicine Gastroenterology
PROC: 0DB68ZX Excision of Stomach, Via Natural or Artificial Opening Endoscopic, Diagnostic (ICD-10-PCS; 2025-05-15)
PROC: 0D758ZZ Dilation of Esophagus, Via Natural or Artificial Opening Endoscopic (ICD-10-PCS; 2025-05-15)
PROC: 0DJD8ZZ Inspection of Lower Intestinal Tract, Via Natural or Artificial Opening Endoscopic (ICD-10-PCS; principal; 2025-05-15 08:30)
PROC: 0DB58ZX Excision of Esophagus, Via Natural or Artificial Opening Endoscopic, Diagnostic (ICD-10-PCS; 2025-05-15 08:30)
DX: Z12.11 Encounter for screening for malignant neoplasm of colon (principal); R13.10 Dysphagia, unspecified; K57.30 Diverticulosis of large intestine without perforation or abscess without bleeding; K64.8 Other hemorrhoids; K21.9 Gastro-esophageal reflux disease without esophagitis; K21.00 Gastro-esophageal reflux disease with esophagitis, without bleeding; K29.50 Unspecified chronic gastritis without bleeding
CPT/HCPCS: 43239; 43450; G0121; 36415; 80048; 85025; 88305; 88312; 93005; J0169; J2003; J2405; J2704; J7120